=== PATIENT | male | born 1980 | race Caucasian/White ===

== ENCOUNTER 2016-10-13 14:53 | Emergency (ER) | payer SELFPAY ==
[~2016-10-13] VITALS: Ht 188 cm; Wt 91.0 kg
[~2016-10-13 14:53] MED LIST: CALCIUM-MAGNES1 EA10 PO; GEODON20 MG PO; KEFLEX500 MG PO; PERCOCET 5/31 TABLET PO
[2016-10-13 16:03] LABS: HEMATOCRIT 46.4 % (38.0-50.0); MCHC 34.9 G/DL (30.0-36.0); MCV 85.9 FL (86-99); MEAN PLAT.VOLUME 9.4 uM^3 (9.0-12.4); PLATELET COUNT 294 K/uL (156-360); RBC DIS.WIDTH-CV 12.2 % (11.8-14.6); RBC DIS.WIDTH-SD 38.1 % (39-53)
[2016-10-13 16:11] LABS: CHLORIDE 107 mEq/L (99-109); POTASSIUM 4.2 mEq/L (3.7-5.4); SODIUM 140 mEq/L (136-147)
[2016-10-13 16:13] LABS: GLUCOSE 88 mg/dL (70-99)
[2016-10-13 16:14] LABS: ANION GAP 9 MEQ/L (2-14)
[2016-10-13 16:15] LABS: TOTAL BILIRUBIN 0.5 mg/dL (0.0-1.0)
[2016-10-13 16:16] LABS: SERUM ETHYL ALCOHOL < 10 mg/dL
[2016-10-13 16:17] LABS: ALKALINE PHOSPHATASE 60 IU/L (3-129); GFR ESTIMATE (CALCULATED) > 59 mL/min/
[2016-10-13 16:18] LABS: UREA NITROGEN (BUN) 9 mg/dL (9-23)
[2016-10-13 16:26] VITALS: BP 159/83
== END 2016-10-13 16:31 | disposition home or self-care (01) ==
LOC: EME → EDBD 14:53 → EME 16:31
PROVIDERS: Emergency Medicine
DX: F20.0 Paranoid schizophrenia (principal); F17.200 Nicotine dependence, unspecified, uncomplicated
CPT/HCPCS: 80053; 81003; 85027; 90837; 99281; 99284; G0480